=== PATIENT | male | born 1995 | race Caucasian/White ===

== ENCOUNTER 2016-07-12 15:33 | Emergency (ER) | payer BC ==
[2016-07-12 16:41] VITALS: BP 114/70
--- NOTE | 2016-07-12 16:58 | UC ---
Throat Pain/Nasal Rogerio HPI - HPI Summary HPI Summary: pt c/o sore throat, headache X 1 day. Has known exposure to strep throat - History of Current Complaint Chief Complaint: UCGeneralIllness Stated Complaint: SORE THROAT Time Seen by Provider: 07/12/16 16:36 Hx Obtained From: Patient Onset/Duration: Sudden Onset, Lasting Hours Severity: Mild - Allergies/Home Medications Allergies/Adverse Reactions: Allergies Allergy/AdvReac Type Severity Reaction Status Date / Time No Known Allergies Allergy Verified 07/12/16 16:36 PMH/Surg Hx/FS Hx/Imm Hx - Additional Past Medical History Additional PMH: Pt c/o sore throat, MEEK X 1 week has known exposure to strep throat. Endocrine History Of: Denies: Diabetes Cardiovascular History Of: Denies: Hypertension, Pacemaker/ICD Respiratory History Of: Denies: Asthma GI/ History Of: Denies: Renal Disease - Surgical History Surgical History: Yes Surgery Procedure, Year, and Place: CYST IN SINUS REMOVED 2009 - Family History Known Family History: Positive: Other - positive [facility] for URI - Social History Occupation: Student Alcohol Use: None Substance Use Type: None Smoking Status (MU): Never Smoked Tobacco Review of Systems Constitutional: Chills Skin: Negative Eyes: Negative ENT: Sore Throat Respiratory: Negative Cardiovascular: Negative Gastrointestinal: Negative Genitourinary: Negative Motor: Negative Neurovascular: Negative Musculoskeletal: Negative Neurological: Headache Psychological: Negative All Other Systems Reviewed And Are Negative: Yes Physical Exam Triage Information Reviewed: Yes Appearance: Well-Appearing Vital Signs: Initial Vital Signs Temp 97.8 F 07/12/16 16:37 Pulse 57 07/12/16 16:37 Resp 16 07/12/16 16:37 BP 114/70 07/12/16 16:37 Pulse Ox 100 07/12/16 16:37 Vital Signs Reviewed: Yes ENT: Positive: Pharyngeal erythema Neck exam: Normal Respiratory Exam: Normal Cardiovascular Exam: Normal Musculoskeletal Exam: Normal Neurological Exam: Normal Psychological Exam: Normal Skin Exam: Normal Throat Pain/Nasal Course/Dx - Differential Dx/Diagnosis Differential Diagnosis/HQI/PQRI: Pharyngitis, Tonsillitis, URI Provider Diagnoses: pharyngitis Discharge - Discharge Plan Condition: Stable Disposition: HOME Prescriptions: Penicillin VK TAB 500 MG(NF) [Penicillin VK 500 mg Tab(NF)] 500 mg PO Q12H #14 tab Patient Education Materials: Pharyngitis (ED) Referrals: Lorraine Mariscal [Primary Care Provider] -
== END 2016-07-12 17:16 | disposition home or self-care (01) ==
LOC: UCCORT 15:33
DX: J02.9 Acute pharyngitis, unspecified (principal)
CPT/HCPCS: 87651; 99212; G0463